=== PATIENT | female | born 1965 | race Two or more races ===

== ENCOUNTER 2020-07-24 16:10 | Emergency (ER) | payer OTHER ==
[~2020-07-24] VITALS: Ht 154.9 cm; Wt 59.0 kg
[2020-07-24] MEDS ORDERED: BACTRIM DS TAB1 EACH PO (17:05)
== END 2020-07-24 17:15 | disposition home or self-care (01) ==
LOC: ER 16:10
DX: L05.01 Pilonidal cyst with abscess (principal)

== ENCOUNTER 2024-05-21 07:40 | Inpatient (IN) | payer OTHER ==
[2024-05-18 15:13] LABS: URINE APPEARANCE Cloudy; URINE BILIRRUBIN Negative (NEGATIVE); URINE BLOOD Moderate; URINE COLOR Yellow; URINE GLUCOSE Negative (NEGATIVE); URINE KETONE Negative (NEGATIVE); URINE LEUKOCYTE Moderate; URINE NITRATE Negative; URINE PROTEIN Negative (NEGATIVE); URINE UROBILINOGEN 0.2 E.U./dl
[2024-05-18 15:14] LABS: HEMATOCRIT 40.1 % (36.0-45.00); HEMOGLOBIN 13.5 g/dL (12.0-15.00); MEAN CELL VOLUME 93.3 fL (80.00-100.00); MEAN CORPUSCULAR HEMOGLOBIN 31.4 pg (27.00-32.0); MEAN CORPUSCULAR HGB CONC 33.6 g/dl (32.0-36.0); PLATELET COUNT 246 K/uL (150-450); RED CELL DISTRIBUTION WIDTH 13.9 % (11.5-14.5)
[2024-05-18 15:17] LABS: URINE BACTERIA 1455.2 uL (0.0-1933); URINE EPITHELIAL CELLS 30.3 uL (0.0-38.8); URINE RBC 49.4 uL (0.0-20.8); URINE WBC 166.3 uL (0.0-23.2)
[2024-05-18 15:27] LABS: PARTIAL THROMBOPLASTIN TIME 27.2 SECONDS (22.0-34.0); PROTHROMBIN TIME 10.9 SECONDS (9.0-11.5)
[2024-05-18 15:31] LABS: URINE CAST 0.44 uL (0.0-1.40)
[2024-05-18 15:33] LABS: ALBUMIN 3.7 gm/dL (3.4-5.0); BILIRUBIN TOTAL 0.81 mg/dL (0.3-1.2); CALCIUM 9.1 mg/dL (8.5-10.1); CREATININE SERUM 0.52 mg/dL (0.55-1.02); GFR 120.28; POTASSIUM 3.73 mEq/L (3.5-5.1); TOTAL PROTEIN 7.7 gm/dL (6.4-8.2)
[~2024-05-21 07:40] MED LIST: BACTRIM DS TAB1 EACH PO
[2024-05-21] MEDS ORDERED: CEFAZOLIN SODIUM 1,000 MG VIAL ONE ×2 (15:45→23:52)
[2024-05-21] MEDS ORDERED: TRANEXAMIC ACID 100MG/1ML (1000MG) AMPUL IV ONE (15:45)
[2024-05-21] MEDS ORDERED: ONDANSETRON HCL 2 MG/ML VIAL IV PRN (19:30)
[2024-05-21] MEDS ORDERED: MORPHINE SULFATE 4 MG/ML VIAL IV ONE ×2 (19:30→20:55)
[2024-05-21] MEDS ORDERED: MORPHINE SULFATE 4 MG/ML VIAL IV PRN (19:30)
[2024-05-21] MEDS ORDERED: SODIUM CHLORIDE 0.45 % 1,000 ML IV SCH (19:30)
[2024-05-21] MEDS ORDERED: GENTAMICIN SULFATE 40 MG/ML VIAL IV SCH (21:00)
[2024-05-21] MEDS ORDERED: GENTAMICIN SULFATE 40 MG/ML VIAL ONE (21:35)
[2024-05-21] MEDS ORDERED: MORPHINE SULFATE 2 MG/ML CARTRIDGE IV ONE (22:25)
[2024-05-21 23:07] LABS: HEMATOCRIT 36.8 % (36.0-45.00); HEMOGLOBIN 12.4 g/dL (12.0-15.00); RED BLOOD COUNT 3.94 M/uL (4.00-6.00)
[2024-05-22] MEDS ORDERED: CEFAZOLIN SODIUM 1,000 MG VIAL IV SCH
[2024-05-22 01:49] VITALS: BP 127/73; O2SAT 95
[2024-05-22 06:55] LABS: HEMATOCRIT 37.4 % (36.0-45.00); HEMOGLOBIN 12.6 g/dL (12.0-15.00); MEAN CELL VOLUME 92.8 fL (80.00-100.00); MEAN CORPUSCULAR HEMOGLOBIN 31.3 pg (27.00-32.0); MEAN CORPUSCULAR HGB CONC 33.8 g/dl (32.0-36.0); PLATELET COUNT 242 K/uL (150-450); RED BLOOD COUNT 4.02 M/uL (4.00-6.00); RED CELL DISTRIBUTION WIDTH 13.5 % (11.5-14.5)
[2024-05-22] MEDS ORDERED: XARELTO10 MG PO (07:29)
[2024-05-22] MEDS ORDERED: INTEGRA PLUS C1 EACH PO (07:29)
[2024-05-22] MEDS ORDERED: DUI500 PO (07:30)
[2024-05-22] MEDS ORDERED: PERCOCET 5-3251 EACH PO (07:32)
[2024-05-22 08:00] VITALS: BP 123/70
[2024-05-22] MEDS ORDERED: BACITRACIN 28.35 GM OINT.TUBE TOP SCH (09:00)
[2024-05-22] MEDS ORDERED: IRON FUM,PS/FOLIC/BCOMP,C NO.9 1 CAP CAPSULE PO SCH (09:00)
[2024-05-22] MEDS ORDERED: SENNA/DOCUSATE SODIUM 1 TAB TABLET PO SCH (09:00)
[2024-05-22] MEDS ORDERED: RIVAROXABAN 10 MG TAB PO SCH (09:00)
== END 2024-05-22 13:42 | disposition home or self-care (01) | DRG 494 ==
LOC: CIR.AMB 07:40 → SURG 23:27
PROVIDERS: ADMIT Orthopaedic Surgery Sports Medicine; ATTEND Orthopaedic Surgery Sports Medicine
PROC: 0QUH0JZ Supplement Left Tibia with Synthetic Substitute, Open Approach (ICD-10-PCS; 2024-05-21)
PROC: 0QSH04Z Reposition Left Tibia with Internal Fixation Device, Open Approach (ICD-10-PCS; principal; 2024-05-21 16:45)
DX: S82.152B Displaced fracture of left tibial tuberosity, initial encounter for open fracture type I or II (principal)